=== PATIENT | female | born 1985 | race Two or more races ===

== ENCOUNTER 2017-11-18 18:01 | Emergency (ER) | payer OTHER ==
[~2017-11-18] VITALS: Ht 261.6 cm; Wt 72.6 kg
[~2017-11-18 18:01] MED LIST: SYNTHROID125 MCG; [UNRECOGNIZED DRUG - OTHER]
[2017-11-18] MEDS ORDERED: SYNTHROID137 MCG (18:14)
== END 2017-11-18 21:36 | disposition home or self-care (01) ==
LOC: ER 18:01
DX: R11.11 Vomiting without nausea (principal); R10.84 Generalized abdominal pain

== ENCOUNTER → 2018-12-04 | Emergency (ER) | payer OTHER ==
[~2018-12-04] VITALS: Ht 162.6 cm; Wt 81.6 kg
[~2018-12-04] MED LIST changes: +CLEOCIN HCL150 MG PO; +FLUCONAZOLE150 MG PO; +INTESTINEX680 M1 PO; +KETO10TA2 PO; +SYNTHROID137 MCG; +TERCONAZOLE20 GM VAG
== END | disposition home or self-care (01) ==
LOC: ER 21:28
DX: N61.0 Mastitis without abscess (principal)

== ENCOUNTER 2019-02-02 07:47 | Outpatient (CLI) | payer OTHER | END 2019-02-02 08:04 | disposition home or self-care (01) | LOC: LAB 07:47 | DX: D51.0 Vitamin B12 deficiency anemia due to intrinsic factor deficiency (principal); D50.0 Iron deficiency anemia secondary to blood loss (chronic); D68.8 Other specified coagulation defects; D51.1 Vitamin B12 deficiency anemia due to selective vitamin B12 malabsorption with proteinuria; Z80.3 Family history of malignant neoplasm of breast; C73 Malignant neoplasm of thyroid gland; E06.3 Autoimmune thyroiditis ==

== ENCOUNTER 2019-09-04 08:20 | Emergency (ER) | payer OTHER ==
[~2019-09-04] VITALS: Ht 165.1 cm; Wt 72.6 kg
[2019-09-04] MEDS ORDERED: SYNTHROID150 MCG PO (08:52)
[2019-09-04] MEDS ORDERED: FUSION PLUS CA1 EACH PO (08:54)
== END 2019-09-04 12:28 | disposition home or self-care (01) ==
LOC: ER 08:20
DX: N39.0 Urinary tract infection, site not specified (principal)

== ENCOUNTER 2021-04-29 09:15 | Inpatient (IN) | payer OTHER ==
[~2021-04-29] VITALS: Ht 165.1 cm; Wt 85.7 kg
[~2021-04-29 09:15] MED LIST changes: +FUSION PLUS CA1 EACH PO; +SYNTHROID150 MCG PO
[2021-05-01] MEDS ORDERED: FUSION PLUS CA1 EACH PO (13:14)
[2021-05-01] MEDS ORDERED: ROCALTROL0.25 MCG PO (13:14)
[2021-05-06] MEDS ORDERED: IBUPROFEN800 MG PO (07:07)
[2021-05-06] MEDS ORDERED: NEURONTIN600 MG PO (07:07)
[2021-05-06] MEDS ORDERED: POLY119PG PO (07:08)
[2021-05-06] MEDS ORDERED: SIMETHICONE125 M1 PO (07:08)
[2021-05-06] MEDS ORDERED: TUSSIN MUC100 MG/5 M PO (07:08)
== END 2021-05-06 08:22 | disposition home or self-care (01) | DRG 743 ==
LOC: ADM 09:15 → O/R 05-04 05:00 → OB/GYN 05-04 05:00 → SURH 05-04 08:30 → EDSTATUS 05-04 10:00 → CIR.AMB 05-04 10:00 → OB/GYN 05-04 10:28
PROVIDERS: ADMIT Obstetrics & Gynecology; ATTEND Obstetrics & Gynecology
PROC: 0UT70ZZ Resection of Bilateral Fallopian Tubes, Open Approach (ICD-10-PCS; 2021-05-04)
PROC: 0UT20ZZ Resection of Bilateral Ovaries, Open Approach (ICD-10-PCS; 2021-05-04)
PROC: 0UT90ZZ Resection of Uterus, Open Approach (ICD-10-PCS; principal; 2021-05-04 08:30)
DX: D25.1 Intramural leiomyoma of uterus (principal); D25.2 Subserosal leiomyoma of uterus; D25.0 Submucous leiomyoma of uterus; Z20.822 Contact with and (suspected) exposure to COVID-19; N72 Inflammatory disease of cervix uteri